=== PATIENT | male | born 1960 | race African-American/Black ===

== ENCOUNTER 2018-07-31 23:47 | Emergency (ER) | payer OTHER ==
[~2018-07-31] VITALS: Ht 180.3 cm; Wt 110.2 kg
--- NOTE | 2018-07-31 23:50 | ED.ADGEN ---
Adult General Chief Complaint Chief Complaint "I am from [facility].. 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 but they could not get a hold of HR.. I said I would just come down.. and do the test myself.. ".." I am so angry about this.. I probably should not be at work tonight.. 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 Pt. admits to alcohol use earlier on . Pt. denies problems with alcohol or drugs. Pt. request s to be checked for alcohol and drugs. Pt. ambulatory with out pr oblems. No obvious dis coordination. Patient denies health history. Pt. states he is very angry about allegation he is intoxicated. Review of Systems Review of Systems Constitutional: Denies fever or chills [] Eyes: Denies change in visual acuity, redness, or eye pain [] HENT: Denies nasal congestion or sore throat [] Respiratory: Denies cough or shortness of breath [] Cardiovascular: No additional information not addressed in HPI [] GI: Denies abdominal pain, nausea, vomiting, bloody stools or diarrhea [] : Denies dysuria or hematuria [] Musculoskeletal: Denies back pain or joint pain [] Integument: Denies rash or skin lesions [] Neurologic: Denies headache, focal weakness or sensory changes [] Endocrine: Denies polyuria or polydipsia [] All other systems were reviewed and found to be within normal limits, except as documented in this note. Family History Family History Non contributory Current Medications Current Medications See Nursing for home meds Allergies Allergies Allergies Coded Allergies Type Severity Reaction Last Updated Verified No Known Drug Allergies 08/01/18 No See Nursing Physical Exam Physical Exam Constitutional: Well developed, well nourished, no acute distress, non-toxic appearance. [] HENT: Normocephalic, atraumatic, bilateral external ears normal, oropharynx moist, no oral exudates, nose normal. [] Eyes: PERRLA, EOMI, conjunctiva injected, no discharge. [] Neck: Normal range of motion, no tenderness, supple, no stridor. [] Cardiovascular:Heart rate regular rhythm, no murmur [] Lungs & Thorax: Bilateral breath sounds equal at apexes on auscultation [] Abdomen: Bowel sounds normal, soft, no tenderness, no masses, no pulsatile masses. [] Obese. Skin: Warm, dry, no erythema, no rash. [] Back: No tenderness, no CVA tenderness. [] Extremities: No tenderness, no cyanosis, no clubbing, ROM intact, no edema. [] Neurologic: Alert and oriented X 3, normal motor function, normal sensory function, no focal deficits noted. []Ambulatory with out problems. Psychologic: Affect normal, judgement normal, mood normal. [] Current Patient Data Vital Signs Vital Signs Date Time Temp Pulse Resp B/P (MAP) Pulse Ox O2 Delivery O2 Flow Rate FiO2 07/31/18 23:47 98.2 88 18 97 Room Air Lab Results Laboratory Tests Test 08/01/18 00:01 08/01/18 00:10 Urine Opiates Screen Neg (NEG) Urine Methadone Screen Neg (NEG) Urine Barbiturates Neg (NEG) Urine Phencyclidine Screen Neg (NEG) Urine Amphetamine/Methamphetamine Neg (NEG) Urine Benzodiazepines Screen Neg (NEG) Urine Cocaine Screen Neg (NEG) Urine Cannabinoids Screen Neg (NEG) Urine Ethyl Alcohol Pos (NEG) Ethyl Alcohol Level 64 mg/dL (0-10) H EKG EKG [] Radiology/Procedures Radiology/Procedures [] Course & Med Decision Making Course & Med Decision Making Pertinent Labs and Imaging studies reviewed. (See chart for details). Pt. to follow up with Work comp. and supervision in Am. Return if any concerns. Off work until AM followup. [] Final Impression Final Impression 1. Angry 2. ETOH level 64-- ( reference level 80 or above = intoxication) 3. Urine Drug Screen- negative except for ETOH. Dragon Disclaimer Dragon Disclaimer This electronic medical record was generated, in whole or in part, using a voice recognition dictation system. Discharge Summary Visit Information Final Diagnosis Problems Medical Problems: (1) Feeling angry Status: Acute (2) Irritability and anger Status: Acute (3) Patient request for diagnostic testing Status: Acute Brief Hospital Course Allergies Allergies Coded Allergies Type Severity Reaction Last Updated Verified No Known Drug Allergies 08/01/18 No Vital Signs Vital Signs Date Time Temp Pulse Resp B/P (MAP) Pulse Ox O2 Delivery O2 Flow Rate FiO2 07/31/18 23:47 98.2 88 18 97 Room Air Lab Results Laboratory Tests Test 08/01/18 00:01 08/01/18 00:10 Urine Opiates Screen Neg (NEG) Urine Methadone Screen Neg (NEG) Urine Barbiturates Neg (NEG) Urine Phencyclidine Screen Neg (NEG) Urine Amphetamine/Methamphetamine Neg (NEG) Urine Benzodiazepines Screen Neg (NEG) Urine Cocaine Screen Neg (NEG) Urine Cannabinoids Screen Neg (NEG) Urine Ethyl Alcohol Pos (NEG) Ethyl Alcohol Level 64 mg/dL (0-10) Brief Hospital Course 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 Pt. states he is very angry about allegation he is intoxicated. Pt. 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 Discharge Information Condition at Discharge: Stable Disposition/Orders: D/C to Home Dragon Disclaimer This chart was dictated in whole or in part using Voice Recognition software in a busy, high-work load, and often noisy Emergency Department environment. It may contain unintended and wholly unrecognized errors or omissions. GENI MILES MD Jul 31, 2018 23:50
[2018-08-01 00:30] LABS: BARBITURATES NEG (NEG); BENZODIAZEPINES NEG (NEG); CANNABINOIDS NEG (NEG); COCAINE NEG (NEG); METHADONE NEG (NEG); OPIATES NEG (NEG); PHENCYCLIDINE NEG (NEG)
[2018-08-01 00:33] LABS: AMPHETAMINE/METHAMPHETAMINE NEG (NEG)
[2018-08-01 00:55] VITALS: BP 163/98
== END 2018-08-01 00:55 | disposition home or self-care (01) ==
LOC: ER 23:47
DX: Z02.83 Encounter for blood-alcohol and blood-drug test (principal); R45.4 Irritability and anger; Y90.3 Blood alcohol level of 60-79 mg/100 ml
CPT/HCPCS: 36415; 80307; 99284; G0480

== ENCOUNTER 2019-04-05 02:56 | Emergency (ER) | payer OTHER ==
[~2019-04-05] VITALS: Ht 180.3 cm; Wt 106.0 kg
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
--- NOTE | 2019-04-05 03:37 | RAD ---
INDICATION: Chest pain COMPARISON: None. FINDINGS: 2 view of chest obtained. Cardiac silhouette borderline enlarged. Linear opacity left lung base. Degenerative changes the spine. IMPRESSION: * Linear opacity left lung base which is likely secondary to atelectasis or scarring Electronically signed by: Jairon Painter MD (04/05/2019 3:34 AM) [id number]
[2019-04-05 04:15] VITALS: BP 125/80
[2019-04-05] MEDS ORDERED: KETOROLAC 60 MG/2 ML VIAL. IM ONE (04:30)
--- NOTE | 2019-04-05 17:32 | EKG ---
[address] [address] Test Date: 2019-04-05 Test Time: 03:37:22 Pat Name: SADYA VELÁZQUEZ Department: Room: Gender: M [employer]: : 1960 Requested By: GENI MILES Order Number: [id number] Reading MD: Measurements Intervals [place] Rate: 81 P: 44 WI: 184 QRS: -13 QRSD: 94 T: 11 QT: 372 QTc: 438 Interpretive Statements SINUS RHYTHM LEFTWARD AXIS NO SPECIFIC ECG ABNORMALITIES RI6.01 No previous ECG available for comparison
== END 2019-04-05 04:35 | disposition home or self-care (01) ==
LOC: ER 02:56
DX: S20.219A Contusion of unspecified front wall of thorax, initial encounter (principal); Y04.8XXA Assault by other bodily force, initial encounter; Y93.89 Activity, other specified; Y92.89 Other specified places as the place of occurrence of the external cause; Y99.8 Other external cause status
CPT/HCPCS: 71046; 93005; 96372; 99283; J1885